=== PATIENT | female | born 1935 | race Hispanic/Latino ===

== ENCOUNTER 2019-10-19 10:09 | Emergency (ER) | payer MEDICARE, OTHER ==
[~2019-10-19] VITALS: Ht 160 cm; Wt 72.6 kg
[2019-10-19] MEDS ORDERED: NEOMYCIN/POLYMYX/BACITR OINT 0.9 GM PKT ONE (10:44)
[2019-10-19] MEDS ORDERED: NEOMYCIN/POLYMYXIN/BACITRACIN 15 GM TUBE TOP ONE (10:45)
[2019-10-19] MEDS ORDERED: TETANUS/DIPHTHERIA TOX ADULT 0.5 ML SYR ONE (10:45)
[2019-10-19] MEDS ORDERED: TETANUS/DIPHTHERIA TOX ADULT 0.5 ML SYR IM ONE (10:45)
--- NOTE | 2019-10-19 11:05 | Emergency Department Note ---
History of Present Illnes History of Present Illness Chief Complaint: Extremity Trauma/Pain History of Present Illness This is a 84 year old female with left hand injury . Historian: Patient Arrival Mode: Car Onset (how long ago): hour(s) (2) Location: left hand Quality: sharp Radiation: Denies non-radiation, Denies back, Denies neck, Denies extremity, Denies abdomen, Denies periumbilical, Denies flank, Denies proximal, Denies distal, Denies other Severity: moderate Onset quality: sudden Duration (how long): hour(s) (1) Timing of current episode: constant Progression: worsening Chronicity: new Context: Denies recent illness, Denies recent surgery, Denies recent immobilization, Denies recent travel, Denies trauma/injury, Denies new medications, Denies hx of DVT/PE, Denies non-compliance w/ medications, Denies other Relieving factors: none Exacerbating factors: none Associated symptoms: Reports denies other symptoms Treatments prior to arrival: none Past Medical/Family History Physician Review I have reviewed the patient's past medical and family history. Any updates have been documented here. Past Medical History Recent Fever: No Clinical Suspicion of Infectio: No New/Unexplained Change in Ment: No Past Medical History: Hypertension Past Surgical History: None Social History Smoking Cessation: Never Smoker Counseling Performed: No Alcohol Use: None Any Illegal Drug Use: No TB Exposure/Symptoms: No Physically hurt or threatened: No Family History Family history of heart diseas: No Other Last Tetanus: unknown Any Pre-Existing Lines (PICC,: No Is patient up to date on immun: Yes Last Flu: 2019 Last Pneumovax: 2019 Review of Systems Review of Systems Constitutional: Reports no symptoms EENTM: Reports no symptoms Cardiovascular: Reports no symptoms Respiratory: Reports no symptoms Gastrointestinal: Reports no symptoms Genitourinary: Reports no symptoms Musculoskeletal: Reports no symptoms Integumentary: Reports no symptoms Neurological: Reports no symptoms Psychological: Reports no symptoms Endocrine: Reports no symptoms Hematological/Lymphatic: Reports no symptoms Physical Exam Related Data Allergies: Coded Allergies: Penicillins (Verified Allergy, Unknown, 10/19/19) Triage Vital Signs Vital Signs Date Time Temp Pulse Resp B/P (MAP) Pulse Ox O2 Delivery O2 Flow Rate FiO2 10/19/19 10:22 97.8 98 18 127/79 98 Vital signs reviewed: Yes Physical Exam CONSTITUTIONAL Constitutional: Present well-developed, Present well-nourished HENT HENT: Present normocephalic, Present atraumatic, Present oropharynx clear/mo ist, Present nose normal HENT L/R: Present left ext ear normal, Present right ext ear normal EYES Eyes: Reports PERRL, Reports conjunctivae normal NECK Neck: Present ROM normal PULMONARY Pulmonary: Present effort normal, Present breath sounds normal CARDIOVASCULAR Cardiovascular: Present regular rhythm, Present heart sounds normal, Present capillary refill normal, Present normal rate GASTROINTESTINAL Abdominal: Present soft, Present nontender, Present bowel sounds normal GENITOURINARY Genitourinary: Present exam deferred SKIN Skin: Present warm, Present dry MUSCULOSKELETAL Musculoskeletal: Present other (laceration left hand) NEUROLOGICAL Neurological: Present alert, Present oriented x 3, Present no gross motor or sensory deficits PSYCHOLOGICAL Psychological: Present mood/affect normal, Present judgement normal Results Imaging Imaging results reviewed: Yes Procedures Laceration Laceration: Laceration 1 Site: hand Side: left Size (cm): 6 Description: linear Depth: simple, single layer Local anesthesia: lidocaine 1% Amount of anesthesia (mL): 13 Skin layer closed with: nylon Size (cm): 5-0 Number of sutures: 11 Technique: simple, interrupted Assessment & Plan Medical Decision Making MDM laceration ...fracture Reassessment Reassessment time: 11:03 Reassessment better Assessment & Plan Final Impression: (1) Hand laceration (2) Acute pain due to trauma (3) Contusion of hand including fingers Depart Disposition: HOME, SELF-CARE Last Vital Signs Date Time Temp Pulse Resp B/P (MAP) Pulse Ox O2 Delivery O2 Flow Rate FiO2 10/19/19 10:22 97.8 98 18 127/79 98 Home Meds Active Scripts Cephalexin Monohydrate (KEFLEX) 500 Mg Capsule, 500 MG PO Q6H, #28 TAB 0 Refills Prov:ROBB ALSTON MD 10/19/19 Medications in the ED Tetanus/ Diphtheria Toxoids 0.5 ml ONCE ONCE IM ; Start 10/19/19 at 10:45; Stop 10/19/19 at 10:46; Status DC Neomycin/ Polymyxin/ Bacitracin ONCE ONCE TOP ; Start 10/19/19 at 10:45; Stop 10/19/19 at 10:46; Status DC Neomycin/ Polymyxin/ Bacitracin 0.9 gm STK-MED ONCE .ROUTE ; Start 10/19/19 at 10:44; Stop 10/19/19 at 10:39; Status DC Tetanus/ Diphtheria Toxoids 0.5 ml STK-MED ONCE .ROUTE ; Start 10/19/19 at 10:45; Stop 10/19/19 at 10:39; Status DC ROBB ALSTON MD Oct 19, 2019 11:05
[2019-10-19] MEDS ORDERED: KEFLEX500 MG PO (11:08)
--- NOTE | 2019-10-19 11:21 | Diagnostic Imaging Report ---
EXAMINATION: HAND 3 VIEW LT - HOPD INDICATION: Trauma COMPARISON: None FINDINGS: No acute fracture or dislocation. Alignment is anatomic. Mild scattered degenerative changes. Mild soft tissue swelling of the third and fourth digits. IMPRESSION: Mild soft tissue swelling of the third and fourth digits. No acute osseous injury. Signed by: Des Dave MD on 10/19/2019 11:17 AM
== END 2019-10-19 11:30 | disposition home or self-care (01) ==
LOC: FSED 10:09
DX: S61.213A Laceration without foreign body of left middle finger without damage to nail, initial encounter (principal); W01.198A Fall on same level from slipping, tripping and stumbling with subsequent striking against other object, initial encounter; Y92.003 Bedroom of unspecified non-institutional (private) residence as the place of occurrence of the external cause; I10 Essential (primary) hypertension
CPT/HCPCS: 90471; 90714; 96372; 99283